=== PATIENT | male | born 1965 | race African-American/Black ===

== ENCOUNTER 2024-02-06 04:59 | Inpatient (IN) | payer SELFPAY ==
[2024-02-06 05:26] LABS: #Basophils 0.04 10x3/uL (0.0-0.2); %Basophils 0.9 % (0.0-1.0); %Eosinophils 4.1 % (0.0-10.0); %Lymphocytes 36.4 % (21.0-51.0); %Monocytes 10.7 % (0.0-10.0); %Neutrophils 47.7 % (42.0-75.0); Hematocrit 39.5 % (42.0-52.0); Hemoglobin 13.6 g/dL (14.0-18.0); Mean Corpuscular HGB CONC 34.4 g/dL (32.0-36.0); Mean Corpuscular Hemoglobin 30.8 pg (27.0-31.0); Mean Corpuscular Volume 89.4 fL (78.0-98.0); Mean Platelet Volume 10.3 fL (7.4-10.4); Platelet Count 238 10x3/uL (130-400); RBC Distribution Width 12.2 % (11.5-14.5); Red Blood Cell (RBC) Count 4.42 mill/uL (4.70-6.10)
[2024-02-06 05:42] LABS: Magnesium 1.8 mg/dL (1.6-2.6)
[2024-02-06 05:43] LABS: Acetaminophen Less than 10 mcg/mL (Less than 10); Alcohol Less than 10.0 mg/dL (Less than 10); Salicylate Less than 8.0 mg/dL (Less than 8.0)
[2024-02-06 05:49] LABS: Troponin I 0.017 ng/mL (< 0.028)
[2024-02-06 05:58] LABS: ALT (SGPT) 12 U/L (8-55); AST (SGOT) 11 U/L (5-34); Albumin 3.6 g/dL (3.5-5.0); Alkaline Phosphatase 136 U/L (40-110); Anion Gap 16 mmol/L (10-20); BUN (Urea Nitrogen) 13 mg/dL (8.4-25.7); Bilirubin, Total 0.4 mg/dL (0.2-1.2); Calc. Creatinine Clearance 0 mL/min (70-130); Calcium 9.2 mg/dL (7.8-10.44); Carbon Dioxide 22 mmol/L (22-29); Chloride 99 mmol/L (98-107); Estimated GFR 53; Globulin 3.1 g/dL (2.4-3.5); Glucose 657 mg/dL (70-105); Potassium 3.8 mmol/L (3.5-5.1); Protein, Total 6.7 g/dL (6.0-8.3); Sodium 133 mmol/L (136-145)
[2024-02-06 06:29] LABS: Actual Bicarbonate (HCO3v) 24.9 mEq/L (22-28); Analyzer IN Cardio ER; Base Excess -0.8 mEq/L (-2.0 to +3.0); Calcium, Ionized (venous) 1.18 mmol/L (1.16-1.32); Chloride (VBG) 100 mmol/L (98-106); Hematocrit-VBG 40 % (42.0-52.0); Hemoglobin (Hb) 13.7 g/dL (13.1-17.2); Sodium 135 mmol/L (133-146)
[2024-02-06] MEDS ORDERED: INSULIN REGULAR IN 0.9 % NACL 100 ML ONE (06:29)
[2024-02-06 08:04] LABS: Bacteria/HPF None Seen HPF (None Seen); Bilirubin Negative (Negative); Blood, Urine Negative (Negative); CAUTI Indications for Culture Alt mental st,lethar; Clarity Clear (Clear); Glucose, Urine (Dipstick) Greater than 1000 mg/dL (Negative); Ketone, Urine 10 mg/dL (Negative); Leukocyte Negative Leu/uL (Negative); Nitrite Negative (Negative); Protein, Urine (Dipstick) Negative (Neg-Trace); RBC/HPF 0-3 HPF (0-3); Specific Gravity, Urine 1.037 (1.002-1.036); Squamous Epithelial None Seen HPF (0-3); Urobilinogen Normal mg/dL (Less than 2); WBC/HPF 0-3 HPF (0-3); pH, Urine 5.5 (5.0-9.0)
[2024-02-06 08:08] LABS: Urine Culture Reflex No No
[2024-02-06 08:27] LABS: Amphetamine Not Detected (NotDetected); Barbiturates Screen Not Detected (NotDetected); Benzodiazepine Screen Not Detected (NotDetected); Cocaine Metabolite Screen Detected (NotDetected); Methadone Not Detected (NotDetected); Methamphetamine Detected (NotDetected); Opiate Screen Not Detected (NotDetected); Oxycodone Screen Not Detected (NotDetected); Phencyclidine (PCP) Not Detected (NotDetected); THC/Cannabinoid Screen Not Detected (NotDetected); Tricyclic Screen Not Detected (NotDetected)
[2024-02-06] MEDS ORDERED: Insulin Regular, Human 100 UNIT/ML 10 ML VIAL SC PRN (08:29)
[2024-02-06] MEDS ORDERED: Dextrose 50% Abboject 50 ML SYRINGE SLOW IVP PRN (08:29)
[2024-02-06] MEDS ORDERED: Glucagon 1 MG/ML KIT IM PRN (08:29)
[2024-02-06] MEDS ORDERED: Dextrose 5% in Water 1,000 ML IV PRN (08:29)
[2024-02-06] MEDS ORDERED: Calcium Carbonate 500 MG ChewTAB PO PRN (08:31)
[2024-02-06] MEDS ORDERED: Acetaminophen 650 MG Suppository PR PRN (08:31)
[2024-02-06] MEDS ORDERED: Ondansetron PF 4 MG/2 ML Vial IVP PRN (08:31)
[2024-02-06] MEDS ORDERED: Ondansetron ODT 4 MG TAB PO PRN (08:31)
[2024-02-06] MEDS ORDERED: Lorazepam 2 MG/ML VIAL SLOW IVP PRN (08:40)
[2024-02-06] MEDS: Lactated Ringer's 1,000 ML IV SCH (08:55)
[2024-02-06] MEDS ORDERED: hydrALAZINE 20 MG/ML VIAL SLOW IVP PRN (09:04)
[2024-02-06] MEDS: Famotidine/PF 20 mg/2ml Vial SLOW IVP SCH (09:25)
[2024-02-06] MEDS: Thiamine HCl 200 MG/2 ML VIAL SLOW IVP SCH (09:25)
[2024-02-06 09:26] LABS: Hemoglobin A1c Greater than 14.0 % (4.0-6.0)
[2024-02-06] MEDS: Folic Acid 1 MG TAB PO SCH (09:26)
[2024-02-06] MEDS: Heparin 5,000 UNITS/ML VIAL SC SCH (09:26)
[2024-02-06] MEDS: Multivit, Therapeutic 1 TAB PO SCH (09:27)
[2024-02-06] MEDS: levETIRAcetam 500 MG (5 mL) VIAL SLOW IVP SCH (09:28)
[2024-02-06] MEDS: Magnesium 2 GM/50 ML(in water) 2 GM in Premix 1 BAG IVPB SCH (09:28)
[2024-02-06 11:39] LABS: Anion Gap 10 mmol/L (10-20); BUN (Urea Nitrogen) 12 mg/dL (8.4-25.7); Calc. Creatinine Clearance 102 mL/min (70-130); Calcium 8.8 mg/dL (7.8-10.44); Carbon Dioxide 26 mmol/L (22-29); Chloride 106 mmol/L (98-107); Estimated GFR 87; Glucose 278 mg/dL (70-105); Potassium 3.4 mmol/L (3.5-5.1); Sodium 139 mmol/L (136-145)
[2024-02-06 11:45] LABS: Troponin I 0.017 ng/mL (< 0.028)
[2024-02-06] MEDS ORDERED: Thiamine HCl 200 MG/2 ML VIAL ONE (14:05)
[2024-02-06] MEDS ORDERED: Folic Acid 1 MG TAB ONE (14:05)
[2024-02-06] MEDS ORDERED: Magnesium 2 GM/50 ML BAG (IN WATER) ONE (14:05)
[2024-02-06] MEDS ORDERED: Heparin 5,000 UNITS/ML VIAL ONE (14:05)
[2024-02-06] MEDS ORDERED: levETIRAcetam 500 MG (5 mL) VIAL ONE (14:05)
[2024-02-06] MEDS ORDERED: Multivit, Therapeutic 1 TAB ONE (14:05)
[2024-02-06] MEDS ORDERED: Insulin Regular, Human 100 UNIT/ML 10 ML VIAL ONE (14:06)
[2024-02-06] MEDS ORDERED: Famotidine/PF 20 mg/2ml Vial ONE (14:06)
[2024-02-06] MEDS: Aspirin 300 MG Suppository PR SCH (14:28)
[2024-02-06 18:55] LABS: Anion Gap 11 mmol/L (10-20); BUN (Urea Nitrogen) 9 mg/dL (8.4-25.7); Calc. Creatinine Clearance 120 mL/min (70-130); Calcium 8.4 mg/dL (7.8-10.44); Carbon Dioxide 24 mmol/L (22-29); Chloride 105 mmol/L (98-107); Estimated GFR 101; Glucose 244 mg/dL (70-105); Potassium 3.2 mmol/L (3.5-5.1); Sodium 137 mmol/L (136-145)
[2024-02-06 22:02] VITALS: BMI 27.8
[2024-02-06] MEDS: Insulin Regular, Human 100 UNIT/ML 10 ML VIAL SC PRN (22:10)
[2024-02-06] MEDS: Potassium Chloride 20 MEQ TAB PO SCH (22:11)
[2024-02-06] MEDS: Atorvastatin Calcium 40 MG TAB PO SCH (22:12)
[2024-02-06] MEDS: Cholecalciferol 1,000 UNITS (25 MCG) TAB PO SCH (22:12)
[2024-02-06] MEDS: Cyanocobalamin (Vitamin B-12) 1,000 MCG TAB PO SCH (22:12)
[2024-02-07] MEDS: Acetaminophen 325 MG TAB PO PRN (04:08)
[2024-02-07 05:46] LABS: #Basophils 0.04 10x3/uL (0.0-0.2); %Basophils 0.6 % (0.0-1.0); %Eosinophils 3.3 % (0.0-10.0); %Lymphocytes 29.9 % (21.0-51.0); %Monocytes 10.4 % (0.0-10.0); %Neutrophils 55.5 % (42.0-75.0); Hematocrit 40.3 % (42.0-52.0); Hemoglobin 13.2 g/dL (14.0-18.0); Mean Corpuscular HGB CONC 32.8 g/dL (32.0-36.0); Mean Corpuscular Hemoglobin 30.1 pg (27.0-31.0); Mean Corpuscular Volume 91.8 fL (78.0-98.0); Mean Platelet Volume 11.1 fL (7.4-10.4); Platelet Count 190 10x3/uL (130-400); RBC Distribution Width 12.5 % (11.5-14.5); Red Blood Cell (RBC) Count 4.39 mill/uL (4.70-6.10)
[2024-02-07] MEDS: Insulin Regular, Human 100 UNIT/ML 10 ML VIAL SC PRN ×2 (06:30→13:20)
[2024-02-07 07:38] LABS: ALT (SGPT) 11 U/L (8-55); AST (SGOT) 18 U/L (5-34); Albumin 2.8 g/dL (3.5-5.0); Alkaline Phosphatase 88 U/L (40-110); BUN (Urea Nitrogen) 8 mg/dL (8.4-25.7); Bilirubin, Total 0.7 mg/dL (0.2-1.2); Calc. Creatinine Clearance 105 mL/min (70-130); Estimated GFR 89; Glucose 346 mg/dL (70-105); Magnesium 1.8 mg/dL (1.6-2.6); Phosphorus 2.1 mg/dL (2.3-4.7)
[2024-02-07] MEDS ORDERED: Electrolyte Replacement Protocol 1 EACH FS SCH (08:00)
[2024-02-07] MEDS ORDERED: Electrolyte Replacement Protocol FS PRN (08:15)
[2024-02-07 08:37] LABS: Anion Gap 12 mmol/L (10-20); Calcium 8.5 mg/dL (7.8-10.44); Carbon Dioxide 21 mmol/L (22-29); Chloride 106 mmol/L (98-107); Potassium 4.6 mmol/L (3.5-5.1); Sodium 134 mmol/L (136-145)
[2024-02-07 08:41] LABS: Protein, Total 5.8 g/dL (6.0-8.3)
[2024-02-07] MEDS: Enoxaparin 40 MG (0.4 mL) SYRINGE SC SCH (09:48)
[2024-02-07] MEDS: Magnesium 2 GM/50 ML(in water) 2 GM in Premix 1 BAG IVPB SCH (09:48)
[2024-02-07] MEDS: Aspirin 81 mg Enteric Coated Tablet PO SCH (09:48)
[2024-02-07] MEDS: Lactated Ringer's 1,000 ML IV SCH (15:42)
[2024-02-08] MEDS: glipiZIDE XL 5 mg ER.TAB PO SCH (19:53)
[2024-02-09] MEDS: glipiZIDE XL 5 mg ER.TAB PO SCH (09:17)
[2024-02-09] MEDS: metFORMIN 500 MG TAB PO SCH (09:17)
[2024-02-09] MEDS: Thiamine 100 MG TAB PO SCH (09:17)
[2024-02-09] MEDS: Acetaminophen 500 MG TAB PO SCH (12:12)
[2024-02-09] MEDS: levETIRAcetam 500 MG TAB PO SCH (21:36)
[2024-02-10 15:49] VITALS: BP 120/80; TEMP 98.7
== END 2024-02-10 15:50 | disposition home or self-care (01) | DRG 100 ==
LOC: ERS 04:59 → ERHOLD 07:10 → 2NO 21:26 → T4-B 02-08 22:20
PROVIDERS: ADMIT Student in an Organized Health Care Education/Training Program; ATTEND Student in an Organized Health Care Education/Training Program
PROC: 4A00X4Z Measurement of Central Nervous Electrical Activity, External Approach (ICD-10-PCS; principal; 2024-02-06)
DX: R56.9 Unspecified convulsions (principal); E11.00 Type 2 diabetes mellitus with hyperosmolarity without nonketotic hyperglycemic-hyperosmolar coma (NKHHC); G92.8 Other toxic encephalopathy; E87.1 Hypo-osmolality and hyponatremia; N17.9 Acute kidney failure, unspecified; Z79.82 Long term (current) use of aspirin; Z79.84 Long term (current) use of oral hypoglycemic drugs; Z79.899 Other long term (current) drug therapy; E83.42 Hypomagnesemia; D64.9 Anemia, unspecified; Z79.01 Long term (current) use of anticoagulants; K21.9 Gastro-esophageal reflux disease without esophagitis; I10 Essential (primary) hypertension; E78.5 Hyperlipidemia, unspecified; Z86.73 Personal history of transient ischemic attack (TIA), and cerebral infarction without residual deficits
CPT/HCPCS: 36415; 36416; 70450; 71045; 72125; 80053; 80306; 80307; 81001; 82140; 82805; 83036; 83735; 83930; 84100; 84443; 84484; 85025; 93005; 96361; 96374; J1644; J1650; J1815; J1953; J3411; J3475; J3490; J7120